=== PATIENT | female | born 1985 | race Caucasian/White ===

== ENCOUNTER 2018-11-15 14:34 | Inpatient (IN) ==
--- NOTE | 2018-11-15 14:48 | ANES ---
Anesthesia Pre Procedure Eval Vitals/Labs: Last Vital Signs Temp 36.8 C 11/15/18 14:43 Pulse 129 H 11/15/18 14:43 Resp 24 H 11/15/18 14:43 BP 127/58 11/15/18 14:43 Pulse Ox 100 11/15/18 14:43 HOME MEDICATIONS Vits96/Iron Fum/Folic [ S] 1 tab PO DAILY 08/26/15 [Last Taken 11/02/18] epinephrine 0.3 mg/0.3 mL injection, auto-injector 0.3 mg IM ONCE PRN ea 05/04/18 [Last Taken Unknown] ascorbic acid (vitamin C) 500 mg tablet 500 mg PO DAILY 06/06/18 [Last Taken 11/02/18] ferrous sulfate 325 mg (65 mg iron) tablet 325 mg PO BID tab 09/05/18 [Last Taken 11/02/18] acetaminophen 500 mg tablet 500 mg PO Q6H PRN 10/04/18 [Last Taken Unknown] calcium carbonate 200 mg calcium (500 mg) chewable tablet 400 mg PO DAILY PRN tab 10/04/18 [Last Taken 11/02/18] Allergies/Adverse Reactions: Allergies Allergy/AdvReac Type Severity Reaction Status Date / Time venom-honey bee Allergy Severe anaphylaxis Verified 11/15/18 12:34 [bee venom (honey bee)] morphine Allergy Mild hives Verified 11/15/18 12:34 - Planned Procedure Planned Procedure: Repeat w/ poss abdominal scar revision Medication List Reviewed:: Yes Allergies Verified: Yes Medical History (Updated 09/05/18 @ 16:13 by Susi Sanchez RN) Proteinuria (Chronic) chronic, has been evaluated by urology 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, side unknown Mitral valve prolapse (Chronic) Onset Date: ~2011 cleared by [facility] in 2012 per pt Migraine (Chronic) ASCUS with positive high risk HPV (Acute) Onset Date: ~05/18/17 05/18/17 & 05/05/18 Anemia Onset Date: 09/05/18 w/ H/O wisdom tooth extraction HPV in female (Resolved) Onset Date: ~05/28/17 Cervical high risk HPV DNA test positive Infertility (Resolved) Onset Date: ~03/01/13 Irregular menses (Resolved) Onset Date: ~07/28/13 Surgical History (Updated 10/25/17 @ 11:31 by Honey Hernandez MA) History of arthroscopy of right knee Onset Date: ~2007 History of section Onset Date: Unknown 08/27/2015 03/25/2017 Hx of colonoscopy done at ages 12, 15 and 22 looking for IBS Family History (Updated 05/05/18 @ 09:13 by Mary Carmen Gipson CMA) Mother Cancer skin/melanoma Hypertension Grandmother Cancer breast/melanoma Father Hypertension Hyperlipemia - Family Anesthesia History Family History:: no untoward family reactions to anesthesia, no familial b leeding tendencies, no family history of clotting disorders, no family history of premature - Airway/Neck/Teeth Within Normal Limits:: Yes Teeth Condition: intact Neck Exam: full range of motion Mallampatti Score: 2 Thyromental (T-M) distance: > 6 cm Mandibulo Hyoid distance: > 3 cm - Respiratory Respiratory Physical: lungs clear Smoking Status: Never smoker Sleep Apnea currently treated: No Sleep Apnea by current assessment: No - Cardiovascular Tolerate Activity: Good Heart Sounds: S1 & S2, Regular - Anesthesia Assessment and Plan ASA Class: PS, II, E Anesthesia Type Plan: Block - Bilateral TAP block for post op pain relief, Spinal
[2018-11-15] MEDS ORDERED: DEXTROSE 5%-LACTATED RINGERS 1,000 ML IV PRN (15:06)
[2018-11-15] MEDS ORDERED: ceFAZolin SODIUM/DEXTROSE,ISO 2 GM/50 ML BAG IV ONE (15:06)
[2018-11-15] MEDS ORDERED: AZITHROMYCIN 500 MG in DEXTROSE 5 % IN WATER 250 ML IV ONE ×2 (15:06)
[2018-11-15] MEDS ORDERED: OXYTOCIN 20 UNITS in RINGER'S SOLUTION,LACTATED 1,000 ML IV ONE (15:06)
[2018-11-15 15:25] LABS: Hematocrit 26.6 % (37.0-47.0); Hemoglobin 8.5 gm/dL (12.5-16.0); Mean Cell Volume 77.8 fl (78-100); Mean Corpuscular Hemoglobin 24.9 pg (27-31); Neutrophil % 78.5 % (42-75.0); Platelet Count 277 K/mm3 (150-450); Red Blood Count 3.42 M/mm3 (4.2-5.4); Red Cell Distribution Width 14.6 % (11.5-14.0); White Blood Count 11.4 K/mm3 (4.0-10.5)
[2018-11-15] MEDS: RINGER'S SOLUTION,LACTATED 1,000 ML IV PRN ×2 (15:30→16:58)
--- NOTE | 2018-11-15 15:55 | HP ---
Chief Complaint - Chief Complaint Date of Service: 11/15/18 Time of Service: 15:37 Chief Complaint: increasing painful contractions, sharp LLQ abdominal pain History of Present Illness: 33 yo at 36 2/7 weeks presents to L&D for complaint of increasing frequency and intensity of contractions bringing her to tears and sharp LLQ pain 9/10. Patient was monitored for several hours last night for contractions which were 5/10 but never made significant cervical change. She was given a dose of betamethasone. Repeat was scheduled for tonight but patient is unable to bear the pain of her contractions and the constant LLQ pain. This complicated by maternal congenital kidney abnormality, severe anemia, labor, and prior c/s x 2. 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, side unknown Mitral valve prolapse (Chronic) Onset Date: ~2011 cleared by [employer] in 2011 per pt Migraine (Chronic) ASCUS with positive high risk HPV (Acute) Onset Date: ~05/18/17 05/18/17 & 05/05/18 Anemia Onset Date: 09/05/18 w/ H/O wisdom tooth extraction HPV in female (Resolved) Onset Date: ~05/28/17 Cervical high risk HPV DNA test positive Infertility (Resolved) Onset Date: ~03/01/13 Irregular menses (Resolved) Onset Date: ~07/28/13 Surgical History: Surgical History (Updated 10/25/17 @ 11:31 by Honey Hernandez MA) History of arthroscopy of right knee Onset Date: ~2007 History of section Onset Date: Unknown 08/27/2015 03/25/2017 Hx of colonoscopy done at ages 12, 15 and 22 looking for IBS Family History: Family History (Updated 05/05/18 @ 09:13 by Mary Carmen Gipson CMA) Mother Cancer skin/melanoma Hypertension Grandmother Cancer breast/melanoma Father Hypertension Hyperlipemia Social History: (Last Updated 10/31/18 @ 16:33 by Gee Cruz DO) Social History: Marital status: household members: spouse, children current occupational status: employed current occupation: nurse current occupational exposures/hazards: No Highest education level completed: Bachelor's degree Service: No Tobacco: Smoking Status: Never smoker Alcohol: alcohol intake: former details: none since LMP Substance Use: substance use type: does not use Dietary Habits: caffeine: Yes caffeine comment: 3 times weekly Type: tea, coffee Review Of Systems (GEN) - Review of Systems Generalized/Overall Review: Present: No Symptoms Reported EENTM: Present: No Symptoms Reported Respiratory: Present: No Symptoms Reported Cardiac: Present: No Symptoms Reported Abdominal: Present: Nausea, Abdominal Pain - LLQ, Other - contractions Genitourinary: Present: No Symptoms Reported Musculoskeletal: Present: No Symptoms Reported Neurological: Present: No Symptoms Reported Skin: Present: No Symptoms Reported Allergies/Adverse Reactions: Allergies Allergy/AdvReac Type Severity Reaction Status Date / Time venom-honey bee Allergy Severe anaphylaxis Verified 11/15/18 15:05 [bee venom (honey bee)] morphine Allergy Mild hives Verified 11/15/18 15:05 Home Medications: HOME MEDICATIONS Vits96/Iron Fum/Folic [ S] 1 tab PO DAILY 08/26/15 [Last Taken 11/02/18] epinephrine 0.3 mg/0.3 mL injection, auto-injector 0.3 mg IM ONCE PRN ea 05/04/18 [Last Taken Unknown] ascorbic acid (vitamin C) 500 mg tablet 500 mg PO DAILY 06/06/18 [Last Taken 11/02/18] ferrous sulfate 325 mg (65 mg iron) tablet 325 mg PO BID tab 09/05/18 [Last Taken 11/02/18] acetaminophen 500 mg tablet 500 mg PO Q6H PRN 10/04/18 [Last Taken Unknown] calcium carbonate 200 mg calcium (500 mg) chewable tablet 400 mg PO DAILY PRN tab 10/04/18 [Last Taken 11/02/18] Exam - Exam Vital Signs: Vital Signs - Last Taken Temp 36.8 C 11/15/18 14:43 Pulse 129 H 11/15/18 14:43 Resp 24 H 11/15/18 14:43 BP 127/58 11/15/18 14:43 Pulse Ox 100 11/15/18 14:43 Constitutional: Present: Alert, Oriented x3, Cooperative, Moderate distress ENT Exam: Present: hearing grossly normal Neck: Present: non-tender. Absent: thyromegaly Back Exam: Present: no CVA tenderness Breasts: Present: Exam deferred Respiratory: Present: lungs clear, no respiratory distress Cardiovascular/Chest: Present: normal peripheral pulses, tachycardia Abdomen: Present: soft, no rebound tenderness, tender - LLQ, other - gravid. Absent: guarding, rigidity /Rectal: Present: Other - 1/50/-3 Extremity: Present: no pedal edema, no calf tenderness Skin Exam: Present: normal color, warm/dry, no cyanosis Neurologic: Present: alert, normal mood/affect, oriented x 3. Absent: dizzy/light-headedness Appearance: Present: appropriate appearance, appropriate insight Eye contact: Present: cooperative, good eye contact, increased rate of speech Thoughts: Present: normal thought pattern, normal mood /affect Diagnostic Studies: Abnormal Lab Results 11/15/18 Range/Units 15:15 WBC 11.4 H (4.0-10.5) K/mm3 RBC 3.42 L (4.2-5.4) M/mm3 Hgb 8.5 L (12.5-16.0) gm/dL Hct 26.6 L (37.0-47.0) % MCV 77.8 L (78-100) fl MCH 24.9 L (27-31) pg RDW 14.6 H (11.5-14.0) % Immature Gran % (Auto) 1.00 H (0.001-0.429) % Immature Gran # (Auto) 0.11 H (0.000-0.0310) K/mm3 Neutrophils % 78.5 H (42-75.0) % Lymphocytes % 15.1 L (20-51) % Neutrophils # 9.0 H (1.3-6.0) K/mm3 Laboratory Results WBC 11.4 K/mm3 (4.0-10.5) H 11/15/18 15:15 RBC 3.42 M/mm3 (4.2-5.4) L 11/15/18 15:15 Hgb 8.5 gm/dL (12.5-16.0) L 11/15/18 15:15 Hct 26.6 % (37.0-47.0) L 11/15/18 15:15 MCV 77.8 fl (78-100) L 11/15/18 15:15 MCH 24.9 pg (27-31) L 11/15/18 15:15 MCHC 32.0 g/dl (32-36) 11/15/18 15:15 RDW 14.6 % (11.5-14.0) H 11/15/18 15:15 Plt Count 277 K/mm3 (150-450) 11/15/18 15:15 MPV 10.0 fl (8-12.5) 11/15/18 15:15 Immature Gran % (Auto) 1.00 % (0.001-0.429) H 11/15/18 15:15 Immature Gran # (Auto) 0.11 K/mm3 (0.000-0.0310) H 11/15/18 15:15 78.5 % (42-75.0) H 11/15/18 15:15 15.1 % (20-51) L 11/15/18 15:15 5.3 % (0.0-9) 11/15/18 15:15 0.0 % (0.0-3.0) 11/15/18 15:15 0.1 % (0.0-1.0) 11/15/18 15:15 Nucleated RBC % 0.0 k/mm3 (0-1) 11/15/18 15:15 9.0 K/mm3 (1.3-6.0) H 11/15/18 15:15 1.72 k/mm3 (1.5-3.5) 11/15/18 15:15 0.6 k/mm3 (0.0-1.0) 11/15/18 15:15 0.0 k/mm3 (0.0-0.7) 11/15/18 15:15 Absolute Basophils 0.0 k/mm3 (0.0-0.1) 11/15/18 15:15 NST reactive bedside U/S: baby is transverse back down with head to maternal right. Assessment/Plan - Assessment/Plan (1) Previous section Assessment: Admit for repeat LTCS with bilateral salpingectomy if baby is a girl, and possible abdominal scar revision. Patient understands that a classical c/s may be needed if remains in current transverse back down position. Problem: Acute (2) labor Problem: Acute Qualifiers: labor trimester: third trimester labor delivery status: with delivery in third trimester Fetus number: single or unspecified fetus Qualified Code(s): O60.14X0 - labor third trimester with delivery third trimester, not applicable or unspecified (3) LLQ abdominal pain Assessment: probably due to fetus being transverse and putting increased pressure on left side of uterus. Possible partial abruption. Problem: Acute (4) Congenital anomaly of kidney Problem: Chronic (5) Mitral valve prolapse Problem: Inactive (6) Sterilization Assessment: r/b/a to bilateral salpingectomy discussed with patient, including risks of failure 1/300-02/999, need for further surgery, increased risk for ectopic if failure occurs. She understands this is permanent and non reversible. She states she only wants sterilized if this baby is a girl. Problem: Acute
[2018-11-15] MEDS ORDERED: SIMETHICONE 80 MG TAB.CHEW PO PRN (18:05)
[2018-11-15] MEDS ORDERED: SENNOSIDES 8.6 MG TABLET PO PRN (18:05)
[2018-11-15] MEDS ORDERED: BISACODYL 10 MG SUPP.RECT RC PRN (18:05)
[2018-11-15] MEDS ORDERED: ONDANSETRON HCL/PF 2 MG/ML VIAL IV PRN (18:05)
[2018-11-15] MEDS ORDERED: IBUPROFEN 800 MG TABLET PO PRN (18:05)
--- NOTE | 2018-11-15 18:17 | OR ---
Operative Report - Dictated Report Narrative: Indication: 33-year-old 3 para 2 at 36 2/7 weeks with prior section x2 presents in labor. Patient desires sterilization if baby is a girl. status: Planned Pre Operative Diagnosis: 36 2/7-week intrauterine . Prior sec tion x2. labor. Desires permanent sterilization via bilateral salpingectomy. Post Operative Diagnosis: Same. Procedure: Repeat low transverse section. Bilateral salpingectomy. Surgeon: Telma Cruz DO Housekeeping Room Attendant: OR Staff Anesthesia: Spinal, TAP block Estimated Blood Loss: 100 mL Urine Output: 200 mL clear urine Fluids Replacement: 1500 mL Drains: [place] to gravity Surgical Complications: None Specimens: Placenta to pathology Findings: Female in transverse back down position converted to eneida breech presentation born at 1658 on 11/15/2018 with Apgars 7 and 9, weighing 3611 g. Nuchal cord and body cord x1. Terminal meconium and urination. Normal uterus, tubes, ovaries Technique: The patient was taken to the operating room and placed in dorsal sup ine position with a left lateral tilt. After adequate spinal anesthesia, [place] catheter inserted, SCDs placed, 500 mg of Zithromax intravenously, and 2 g of Ancef intravenously given preoperatively, the abdominal cavity was entered using sharp and blunt dissection. Two rolled laps were placed in the pericolic gutters on either side of the uterus. The was converted from transverse back down to eneida breech presentation. A transverse incision was made in the lower uterine segment and extended laterally and upwardly with digital traction. Clear fluid was noted upon amniotomy. The was delivered buttock first in eneida breech presentation using the usual maneuvers. Body and nuchal cord were reduced with delivery of head. The cord was clamped and cut and was handed off to awaiting data integrity consultant. The placenta was allowed to deliver spontaneously. The uterus was cleared of clot and debris. Uterine incision was closed with 0 Vicryl using a running stitch. A second imbricating layer was placed. Excellent hemostasis was noted. The rolled laps were removed from the abdominal cavitiy. The right fallopian tube was identified and followed out to the fimbriated end area using bipolar graspers the mesosalpinx was coagulated and transected approximately 2 cm from the cornual region. The tube was coagulated then transected at this spot. Exact same was done on the patient's left side. Excellent hemostasis was noted. The peritoneum was closed with a running 3-0 Monocryl. The same suture was used to approximate the rectus and pyramidalis muscles. The fascia was closed with a running 0 Vicryl. The subcutaneous layer was closed with a running 3-0 Monocryl. The same suture was used to approximate the subdermal layer. The skin was closed with a running 4-0 Monocryl and Dermabond. Sponge, lap, needle, and instrument count were correct x 2. Disposition: To post anesthesia care unit in good condition History for MU History for MU Definition: * The number of deliveries resulting in a live the patient experienced prior to current hospitalization * The previous delivery of live twins or any live multiple gestation is considered one live event. *If primagravida or nulliparous is documented select zero for the number of previous live births. Live Events: Live Events: 2
--- NOTE | 2018-11-15 18:22 | ANES ---
Post Anesthesia Discharge - Transfer of Care Transfer of Care handoff given to nurse: Yes - Discharge from PACU Discharge from PACU when meets criteria: Yes - Awake in PACU.
[2018-11-15] MEDS ORDERED: KETOROLAC TROMETHAMINE 30 MG/ML VIAL IV ONE (18:26)
--- NOTE | 2018-11-15 18:26 | ANES ---
Anesthesia Procedure Note Procedure Note: ANESTHESIA PROCEDURE NOTE Date of Procedure: 11/15/2018 Time of procedure: 1800. Performed by: TRACIE Brantley CRNA, MSN Bus Info Consultant: Lory Solis RN. Preprocedure diagnosis: Post section pain. Post procedure diagnosis: Same. Procedure: Bilateral TAP block Indications: Post section pain relief. Findings: See below. Details of the procedure: The patient was brought to PACU and placed in the supine position. The patient was prepped with chlorhexidine and using ul trasound guidance the 3 abdominal muscular planes were identified and lidocaine 1% was infiltrated to the skin of the intended injection site. Under ultrasound guidance the the internal oblique and transverse this abdominis muscle layers were approached with visualization of a 4 inch block needle until the tip of the needle rested in the plane between the muscles. 25 mL bupivacaine 0.5% with 1 -200,000 epinephrine was injected and the procedure was repeated on the other side. Please see radiology/ultrasound report for details and images of the procedure. EBL: 0 Fluids: N/A. Specimen: N/A. Post procedure condition: The patient tolerated the procedure well. No complications were noted. Thank you for this consultation. Nikolay Luis CRNA, ARNP, MSN
[2018-11-15] MEDS ORDERED: EPINEPHrine 0.3 MG DISP.SYRIN IM PRN (19:30)
--- NOTE | 2018-11-15 19:37 | ANES ---
Post Anesthesia Assessment - Vital Signs Vitals: Last Vital Signs Temp 36.4 C 11/15/18 18:40 Pulse 127 H 11/15/18 18:40 Resp 21 H 11/15/18 18:40 BP 134/70 11/15/18 18:40 Pulse Ox 100 11/15/18 18:40 Airway Patency: Normal - Mental Status Level Of Consciousness: Awake, Alert, Appropriate - Pain Level Pain Score: 3 - N/V Assessment Nausea/Vomiting Presence: None Dehydration:: No
[2018-11-15] MEDS: DOCUSATE SODIUM 100 MG CAPSULE PO SCH (20:39)
[2018-11-15] MEDS: oxyCODONE HCL/ACETAMINOPHEN 1 TAB TABLET PO PRN (20:40)
[2018-11-15] MEDS: FERROUS SULFATE 325 MG TABLET PO SCH (20:40)
[2018-11-15] MEDS: IBUPROFEN 800 MG TABLET PO PRN (20:40)
[2018-11-16] MEDS: oxyCODONE HCL/ACETAMINOPHEN 1 TAB TABLET PO PRN ×6 (01:12→21:04)
[2018-11-16] MEDS: ENOXAPARIN SODIUM 40 MG/0.4 ML SYRG SC SCH (02:02)
[2018-11-16] MEDS: IBUPROFEN 800 MG TABLET PO PRN ×3 (03:29→18:00)
[2018-11-16] MEDS: PRENATAL VITS96/IRON FUM/FOLIC 1 TAB TABLET PO SCH (09:14)
[2018-11-16] MEDS: ASCORBIC ACID 500 MG TABLET PO SCH (09:14)
[2018-11-16] MEDS: DOCUSATE SODIUM 100 MG CAPSULE PO SCH ×2 (09:14→20:46)
[2018-11-16] MEDS: FERROUS SULFATE 325 MG TABLET PO SCH ×2 (09:14→21:03)
--- NOTE | 2018-11-16 11:30 | PN ---
Subjective - Date and Time Seen Date: 11/16/18 Time: 11:28 Objective - Vitals Vitals: Last Vital Signs Temp 36.2 C 11/16/18 06:48 Pulse 93 11/16/18 06:48 Resp 16 11/16/18 06:48 BP 115/71 11/16/18 06:48 Pulse Ox 98 11/16/18 06:48 Patient denies complaints. Ambulating without difficulty. Tolerating regular diet. Pain well controlled. Lochia wnl. Abdomen - soft, appropriately tender Incision -clean, dry, intact uterus - firm, at umbilicus -3 no calf tenderness Impression: Post op day #3 s/p repeat section. Bilateral salpingectomy. Plan: Routine discharge instructions - Abnormal Lab Findings Abnormal Lab Findings: Abnormal Lab Results 11/15/18 Range/Units 15:15 WBC 11.4 H (4.0-10.5) K/mm3 RBC 3.42 L (4.2-5.4) M/mm3 Hgb 8.5 L (12.5-16.0) gm/dL Hct 26.6 L (37.0-47.0) % MCV 77.8 L (78-100) fl MCH 24.9 L (27-31) pg RDW 14.6 H (11.5-14.0) % Immature Gran % (Auto) 1.00 H (0.001-0.429) % Immature Gran # (Auto) 0.11 H (0.000-0.0310) K/mm3 Neutrophils % 78.5 H (42-75.0) % Lymphocytes % 15.1 L (20-51) % Neutrophils # 9.0 H (1.3-6.0) K/mm3 Cauti Physician Documentation - Urinary Catheter Management Urethral ([place]) Date of Insertion: 11/15/18 Time of Insertion: 16:45 Assessment/Plan - Problems/Diagnosis (1) Previous section Problem: Acute (2) labor Problem: Acute Qualifiers: labor trimester: third trimester labor delivery status: with delivery in third trimester Fetus number: single or unspecified fetus Qualified Code(s): O60.14X0 - labor third trimester with delivery third trimester, not applicable or unspecified (3) LLQ abdominal pain Problem: Acute (4) Congenital anomaly of kidney Problem: Chronic (5) Mitral valve prolapse Problem: Inactive (6) Sterilization Problem: Acute
[2018-11-17] MEDS: oxyCODONE HCL/ACETAMINOPHEN 1 TAB TABLET PO PRN ×2 (02:47→07:16)
[2018-11-17] MEDS: IBUPROFEN 800 MG TABLET PO PRN (02:48)
[2018-11-17] MEDS: ENOXAPARIN SODIUM 40 MG/0.4 ML SYRG SC SCH (02:48)
[2018-11-17] MEDS: DOCUSATE SODIUM 100 MG CAPSULE PO SCH ×2 (07:16→08:19)
[2018-11-17] MEDS: ASCORBIC ACID 500 MG TABLET PO SCH ×2 (07:16→08:19)
[2018-11-17] MEDS: PRENATAL VITS96/IRON FUM/FOLIC 1 TAB TABLET PO SCH ×2 (07:17→08:19)
[2018-11-17] MEDS: FERROUS SULFATE 325 MG TABLET PO SCH ×2 (07:17→08:19)
[2018-11-17 12:37] VITALS: BP 123/85
== END 2018-11-17 17:45 | disposition home or self-care (01) | DRG 784 ==
LOC: OB 14:34
PROVIDERS: ADMIT Obstetrics & Gynecology; ATTEND Obstetrics & Gynecology
CPT/HCPCS: 36415; 59025; 85025; 86850; 88302; 88307